=== PATIENT | female | born 1940 | race Caucasian/White ===

== ENCOUNTER 2016-09-29 21:03 | Emergency (ER) | payer OTHER ==
[~2016-09-29] VITALS: Ht 165.1 cm; Wt 69.3 kg
[~2016-09-29 21:03] MED LIST: CLARITIN10 M3 PO; DOXYCYCLINE HY100 M1 PO; PERCOCET 5/31 TABLET PO; TORADOL10 MG PO
[2016-09-29 22:17] LABS: HEMATOCRIT 40.8 % (36.0-46.0); MCH 28.8 PG (29.0-34.0); MCHC 32.8 G/DL (30.0-36.0); MCV 87.6 FL (83-99); MEAN PLAT.VOLUME 9.4 uM^3 (9.5-12.4); PLATELET COUNT 274 K/uL (156-360); RBC DIS.WIDTH-CV 12.8 % (11.8-14.6); RBC DIS.WIDTH-SD 40.2 % (39-53); RED BLOOD COUNT 4.66 M/uL (3.80-5.20); WHITE BLOOD COUNT 12.5 K/uL (4.1-10.2)
[2016-09-29 22:28] LABS: CHLORIDE 105 mEq/L (99-109); POTASSIUM 3.6 mEq/L (3.7-5.4); SODIUM 142 mEq/L (136-147)
[2016-09-29 22:31] LABS: GLUCOSE 115 mg/dL (70-99)
[2016-09-29 22:32] LABS: ANION GAP 11 MEQ/L (2-14)
[2016-09-29 22:33] LABS: TOTAL BILIRUBIN 0.5 mg/dL (0.0-1.0)
[2016-09-29 22:34] LABS: ALKALINE PHOSPHATASE 89 IU/L (3-129); GFR ESTIMATE (CALCULATED) > 59 mL/min/
[2016-09-29 22:35] LABS: UREA NITROGEN (BUN) 21 mg/dL (9-23)
[2016-09-29 22:38] LABS: LIPASE 7 U/L (1.0-51.0)
[2016-09-29 23:26] LABS: PTT 27.8 (25-32)
[2016-09-29 23:47] LABS: ADD MIUA? YES; BILIRUBIN NEGATIVE; BLOOD LARGE; COLOR YELLOW ((YELLOW)); GLUCOSE (STRIP) NEGATIVE; KETONES TRACE; LEUKOCYTES NEGATIVE; NITRITE NEGATIVE; PH, URINE 5.5 (5-8); PROTEIN (STRIP) TRACE; UROBILINOGEN 0.2 MG/DL (0.2-1.0)
[2016-09-30 00:02] LABS: TROP-I INTERPRETATION NEGATIVE; TROPONIN-I < 0.01 ng/mL (0.0-0.30)
[2016-09-30] MEDS ORDERED: ZOFRAN8 MG PO (00:08)
[2016-09-30] MEDS ORDERED: NORCO 5/3251 TABLET PO (00:08)
[2016-09-30] MEDS ORDERED: FLOMAX0.4 MG PO (00:08)
[2016-09-30 00:31] LABS: RED BLOOD CELLS 15-20 /HPF (0-5); WHITE BLOOD CELLS 0-5 /HPF (0-5)
[2016-09-30 00:32] LABS: BACTERIA 2+; CALCIUM OXALATE CRYSTALS 1+; CRYSTALS PRESENT; UCUL ADDED? NO
[2016-09-30 00:33] LABS: CASTS PRESENT /LPF; EPITHELIAL CELLS 2+; FINE GRANULAR CASTS 0-5 /LPF; MUCUS NONE SEEN
[2016-09-30] MEDS ORDERED: CIPRO250 MG PO (00:35)
[2016-09-30 00:58] VITALS: BP 155/64
[2016-09-30 01:02] LABS: SPECIFIC GRAVITY 1.048 (1.000-1.030)
== END 2016-09-30 00:59 | disposition home or self-care (01) ==
LOC: EME 21:03
PROVIDERS: Emergency Medicine
DX: N20.1 Calculus of ureter (principal); N39.0 Urinary tract infection, site not specified; Z87.442 Personal history of urinary calculi; F17.200 Nicotine dependence, unspecified, uncomplicated
CPT/HCPCS: 74177; 80053; 81003; 83690; 84484; 85027; 85610; 85730; 99281; 99285; J1885; J2270; J2405; J7030

== ENCOUNTER 2016-10-04 10:48 | Day surgery (SDC) | payer OTHER ==
[~2016-10-04] VITALS: Ht 157.5 cm; Wt 68.0 kg
[~2016-10-04 10:48] MED LIST changes: +CIPRO250 MG PO; +FLOMAX0.4 MG PO; +NORCO 5/3251 TABLET PO; +ZOFRAN8 MG PO
[2016-10-04] MEDS ORDERED: VENTOLIN HFA18 GM IH (10:59)
[2016-10-04 12:01] VITALS: BP 187/80
[2016-10-04 14:21] VITALS: BP 183/80
[2016-10-04 15:20] VITALS: BP 175/74
== END 2016-10-04 15:25 | disposition home or self-care (01) ==
LOC: SDC 10:48
PROVIDERS: Urology
DX: N13.2 Hydronephrosis with renal and ureteral calculous obstruction (principal); J44.9 Chronic obstructive pulmonary disease, unspecified; F17.200 Nicotine dependence, unspecified, uncomplicated; M19.90 Unspecified osteoarthritis, unspecified site
CPT/HCPCS: 82365 90; C1876; J0690; J3010; J7050

== ENCOUNTER 2016-10-16 22:08 | Inpatient (IN) | payer OTHER ==
[~2016-10-16] VITALS: Ht 162.6 cm; Wt 68.5 kg
[~2016-10-16 22:08] MED LIST changes: +VENTOLIN HFA18 GM IH
[2016-10-16 22:21] LABS: BASOPHIL COUNT 0.1 K/uL (0-0.1); EOSINOPHIL (%) 1.2 % (0-5); EOSINOPHIL COUNT 0.2 K/uL (0-0.3); HEMATOCRIT 42.2 % (36.0-46.0); IMMATURE GRANULOCYTE (%) 0.1 % (0.0-0.7); IMMATURE GRANULOCYTE COUNT 0.1 K/uL; LYMPHOCYTE COUNT 2.3 K/uL (1.0-2.8); MCH 29.4 PG (29.0-34.0); MCHC 33.2 G/DL (30.0-36.0); MCV 88.5 FL (83-99); MEAN PLAT.VOLUME 9.4 uM^3 (9.5-12.4); MONOCYTE (%) 7.2 % (3-12); MONOCYTE COUNT 0.9 K/uL (0-0.8); NEUTROPHIL (%) 72.6 % (45-76); NEUTROPHIL COUNT 8.8 K/uL (1.8-6.4); PLATELET COUNT 301 K/uL (156-360); RED BLOOD COUNT 4.77 M/uL (3.80-5.20); WHITE BLOOD COUNT 12.2 K/uL (4.1-10.2)
[2016-10-16 22:35] LABS: AMYLASE 39 IU/L (1-118); CHLORIDE 103 mEq/L (99-109); POTASSIUM 3.4 mEq/L (3.7-5.4); SODIUM 138 mEq/L (136-147)
[2016-10-16 22:37] LABS: GLUCOSE 125 mg/dL (70-99); PTT 27.3 (25-32)
[2016-10-16 22:38] LABS: ANION GAP 9 MEQ/L (2-14)
[2016-10-16 22:40] LABS: SERUM ETHYL ALCOHOL < 10 mg/dL
[2016-10-16 22:41] LABS: GFR ESTIMATE (CALCULATED) > 59 mL/min/
[2016-10-16 22:42] LABS: UREA NITROGEN (BUN) 18 mg/dL (9-23)
[2016-10-16 22:44] LABS: LIPASE 13 U/L (1.0-51.0)
[2016-10-16 22:50] LABS: TROP-I INTERPRETATION INDETERMINATE; TROPONIN-I 0.32 ng/mL (0.0-0.30)
[2016-10-16 23:55] VITALS: BP 134/72
[2016-10-17] VITALS (25 sets, daily range): BP systolic 97–146; BP diastolic 42–85
[2016-10-17 01:36] LABS: METH RESISTANT S AUREUS PCR NEGATIVE (NEGATIVE); PROBE CHECK PASS; SPECIMEN PROCESSING CONTROL PASS
[2016-10-17 06:06] LABS: ANION GAP 10 MEQ/L (2-14); CHLORIDE 110 MEQ/L (99-109); GFR ESTIMATE (CALCULATED) > 59 mL/min/; GLUCOSE 97 mg/dL (70-99); HDL CHOLESTEROL 36 MG/DL (Desirable>=50); LDL CHOLESTEROL 60 mg/dL (Desirable<100); NON-HDL CHOLESTEROL 82 mg/dL (Desirable<160); POTASSIUM 3.9 MEQ/L (3.7-5.4); SAMPLE HEMOLYSIS CHECK 0; SAMPLE ICTERIC CHECK 0; SAMPLE LIPEMIA CHECK 0; SODIUM 144 MEQ/L (136-147); TOTAL CHOLESTEROL 118 mg/dL (Desirable<200); TRIGLYCERIDES 110 MG/DL (Normal: <150); UREA NITROGEN (BUN) 12 mg/dL (9-23)
[2016-10-17 06:07] LABS: TOTAL CK 1799 IU/L (1-294)
[2016-10-17 06:08] LABS: CREATINE KINASE 1799 IU/L (1-294)
[2016-10-17 06:24] LABS: TROP-I INTERPRETATION POSITIVE
[2016-10-17 06:25] LABS: TROPONIN-I 59.27 ng/mL (0.0-0.30)
[2016-10-17 06:27] LABS: EOSINOPHIL (%) 1.1 % (0-5); EOSINOPHIL COUNT 0.1 K/uL (0-0.3); HEMATOCRIT 35.9 % (36.0-46.0); IMMATURE GRANULOCYTE (%) 0.3 % (0.0-0.7); LYMPHOCYTE COUNT 2.1 K/uL (1.0-2.8); MCV 90.7 FL (83-99); MEAN PLAT.VOLUME 9.9 uM^3 (9.5-12.4); MONOCYTE (%) 9.6 % (3-12); MONOCYTE COUNT 0.9 K/uL (0-0.8); NEUTROPHIL (%) 66.4 % (45-76); NEUTROPHIL COUNT 6.3 K/uL (1.8-6.4); PLATELET COUNT 252 K/uL (156-360); RBC DIS.WIDTH-CV 13.2 % (11.8-14.6); RBC DIS.WIDTH-SD 44.3 % (39-53); RED BLOOD COUNT 3.96 M/uL (3.80-5.20); WHITE BLOOD COUNT 9.5 K/uL (4.1-10.2)
[2016-10-17 06:56] LABS: CK-MB 241.5 ng/mL (0.0-4.9)
[2016-10-17 08:54] LABS: Estimated Average Glucose 120 mg/dL (70-123); HEMOGLOBIN A1c (GLYCOHEMOGLOB) 5.8 % HGB (Below 5.7)
[2016-10-17 19:47] LABS: TROP-I INTERPRETATION POSITIVE
[2016-10-17 19:51] LABS: TROPONIN-I 40.89 ng/mL (0.0-0.30)
[2016-10-17 22:24] LABS: TOTAL CK 1367 IU/L (1-294)
[2016-10-17 22:25] LABS: CREATINE KINASE 1367 IU/L (1-294)
[2016-10-17 22:41] LABS: CK-MB 158.8 ng/mL (0.0-4.9)
[2016-10-18] VITALS (10 sets, daily range): BP systolic 103–151; BP diastolic 44–71
[2016-10-18 05:42] LABS: HEMATOCRIT 35.5 % (36.0-46.0); MCH 28.1 PG (29.0-34.0); MCHC 31.3 G/DL (30.0-36.0); MCV 89.9 FL (83-99); MEAN PLAT.VOLUME 9.9 uM^3 (9.5-12.4); PLATELET COUNT 226 K/uL (156-360); RBC DIS.WIDTH-CV 13.3 % (11.8-14.6); RBC DIS.WIDTH-SD 43.9 % (39-53); RED BLOOD COUNT 3.95 M/uL (3.80-5.20); WHITE BLOOD COUNT 7.1 K/uL (4.1-10.2)
[2016-10-18 05:47] LABS: TROP-I INTERPRETATION POSITIVE
[2016-10-18 06:00] LABS: TROPONIN-I 31.81 ng/mL (0.0-0.30)
[2016-10-18 06:24] LABS: CREATINE KINASE 805 IU/L (1-294); TOTAL CK 805 IU/L (1-294)
[2016-10-18 06:25] LABS: ANION GAP 8 MEQ/L (2-14); CHLORIDE 110 MEQ/L (99-109); GFR ESTIMATE (CALCULATED) > 59 mL/min/; GLUCOSE 89 mg/dL (70-99); POTASSIUM 3.8 MEQ/L (3.7-5.4); SAMPLE HEMOLYSIS CHECK 0; SAMPLE ICTERIC CHECK 0; SAMPLE LIPEMIA CHECK 0; SODIUM 145 MEQ/L (136-147); UREA NITROGEN (BUN) 10 mg/dL (9-23)
[2016-10-18 07:26] LABS: CK-MB 66.4 ng/mL (0.0-4.9)
[2016-10-18] MEDS ORDERED: NITROSTAT0.4 MG SL (11:21)
[2016-10-18] MEDS ORDERED: LOPRESSOR25 MG PO (11:21)
[2016-10-18] MEDS ORDERED: ATORVASTATIN CA40 MG PO (11:21)
[2016-10-18] MEDS ORDERED: LISINOPRIL2.5 MG PO (11:21)
[2016-10-18] MEDS ORDERED: CLOPIDOGREL75 MG PO (11:21)
[2016-10-18] MEDS ORDERED: NICOTINE PATCH1 EAC2 TD (11:21)
[2016-10-18] MEDS ORDERED: LO-DOSE ASPIRIN81 M2 PO (16:28)
== END 2016-10-18 16:46 | disposition home or self-care (01) | DRG 247 ==
LOC: EME → EDBD 22:08 → EME 22:47 → CATH 22:47 → 4WEST 23:41 → 2SOUTH 23:41 → 4WEST 23:41
PROVIDERS: Emergency Medicine; Internal Medicine Cardiovascular Disease; Internal Medicine Interventional Cardiology
DX: I21.11 ST elevation (STEMI) myocardial infarction involving right coronary artery (principal); I25.10 Atherosclerotic heart disease of native coronary artery without angina pectoris; I34.0 Nonrheumatic mitral (valve) insufficiency; F17.210 Nicotine dependence, cigarettes, uncomplicated
CPT/HCPCS: 36600; 80048; 80061; 81003; 82150; 82550; 82550 91; 82553; 82803; 83036; 83690; 83735; 84484; 85025; 85027; 85347; 85610; 85730; 86850; 86900; 86901; 87040; 87070; 87086; 87205; 87641; 93005; 94799; 99281; 99285; C1725; C1769; C1874; C1887; G0480; J0153; J0461; J1644; J2250; J2270; J2405; J3010; J7030; J7040; J7050

== ENCOUNTER 2017-02-13 13:07 | Emergency (ER) | payer OTHER ==
[~2017-02-13] VITALS: Ht 165.1 cm; Wt 69.5 kg
[~2017-02-13 13:07] MED LIST changes: +ATORVASTATIN CA40 MG PO; +CLOPIDOGREL75 MG PO; +LISINOPRIL2.5 MG PO; +LO-DOSE ASPIRIN81 M2 PO; +LOPRESSOR25 MG PO; +NICOTINE PATCH1 EAC2 TD; +NITROSTAT0.4 MG SL
[2017-02-13 14:40] LABS: HEMATOCRIT 40.6 % (36.0-46.0); MCH 29.2 PG (29.0-34.0); MCHC 32.5 G/DL (30.0-36.0); MCV 89.8 FL (83-99); MEAN PLAT.VOLUME 9.6 uM^3 (9.5-12.4); PLATELET COUNT 285 K/uL (156-360); RBC DIS.WIDTH-CV 13.2 % (11.8-14.6); RBC DIS.WIDTH-SD 43.1 % (39-53); RED BLOOD COUNT 4.52 M/uL (3.80-5.20); WHITE BLOOD COUNT 6.8 K/uL (4.1-10.2)
[2017-02-13 14:57] LABS: CHLORIDE 108 mEq/L (99-109); POTASSIUM 4.5 mEq/L (3.7-5.4); SODIUM 142 mEq/L (136-147)
[2017-02-13 14:59] LABS: GLUCOSE 103 mg/dL (70-99)
[2017-02-13 15:00] LABS: ANION GAP 8 MEQ/L (2-14)
[2017-02-13 15:03] LABS: GFR ESTIMATE (CALCULATED) > 59 mL/min/
[2017-02-13 15:04] LABS: UREA NITROGEN (BUN) 19 mg/dL (9-23)
[2017-02-13 15:12] LABS: ADD MIUA? YES; BILIRUBIN NEGATIVE; BLOOD MODERATE; COLOR YELLOW ((YELLOW)); GLUCOSE (STRIP) NEGATIVE; KETONES NEGATIVE; LEUKOCYTES SMALL; NITRITE NEGATIVE; PROTEIN (STRIP) NEGATIVE; SPECIFIC GRAVITY 1.018 (1.000-1.030); UROBILINOGEN 0.2 MG/DL (0.2-1.0)
[2017-02-13 16:03] LABS: BACTERIA RARE /HPF; EPITHELIAL CELLS RARE /HPF; HYALINE CASTS 0-5 /LPF; MUCUS TRACE /LPF; RED BLOOD CELLS 0-5 /HPF (0-5); UCUL ADDED? NO; WHITE BLOOD CELLS 0-5 /HPF (0-5)
[2017-02-13] MEDS ORDERED: TORADOL10 MG PO (18:02)
[2017-02-13] MEDS ORDERED: FLOMAX0.4 MG PO (18:02)
[2017-02-13] MEDS ORDERED: ZOFRAN4 MG PO (18:02)
[2017-02-13] MEDS ORDERED: PERCOCET 5/31 TABLET PO (18:02)
[2017-02-13] MEDS ORDERED: PRINIVIL10 MG PO (18:07)
[2017-02-13 19:25] VITALS: BP 142/72
== END 2017-02-13 19:27 | disposition home or self-care (01) ==
LOC: EME 13:07
DX: N20.0 Calculus of kidney (principal); J44.9 Chronic obstructive pulmonary disease, unspecified; I25.2 Old myocardial infarction; Z87.442 Personal history of urinary calculi; Z87.891 Personal history of nicotine dependence
CPT/HCPCS: 74176; 80048; 81003; 85027; 99281; 99285; J1885; J7030

== ENCOUNTER 2017-02-18 17:55 | Emergency (ER) | payer OTHER ==
[~2017-02-18] VITALS: Ht 165.1 cm; Wt 73.1 kg
[~2017-02-18 17:55] MED LIST changes: +PRINIVIL10 MG PO; +ZOFRAN4 MG PO
[2017-02-18 18:17] LABS: MCH 29.2 PG (29.0-34.0); MCHC 32.7 G/DL (30.0-36.0); MCV 89.2 FL (83-99); MEAN PLAT.VOLUME 9.2 uM^3 (9.5-12.4); PLATELET COUNT 250 K/uL (156-360); RBC DIS.WIDTH-CV 13.2 % (11.8-14.6); RBC DIS.WIDTH-SD 43.3 % (39-53); RED BLOOD COUNT 4.15 M/uL (3.80-5.20); WHITE BLOOD COUNT 7.6 K/uL (4.1-10.2)
[2017-02-18 18:25] LABS: CHLORIDE 110 mEq/L (99-109); POTASSIUM 3.9 mEq/L (3.7-5.4); SODIUM 144 mEq/L (136-147)
[2017-02-18 18:26] LABS: GLUCOSE 124 mg/dL (70-99)
[2017-02-18 18:28] LABS: ANION GAP 9 MEQ/L (2-14)
[2017-02-18 18:30] LABS: GFR ESTIMATE (CALCULATED) > 59 mL/min/
[2017-02-18 18:31] LABS: UREA NITROGEN (BUN) 23 mg/dL (9-23)
[2017-02-18 20:52] LABS: ADD MIUA? YES; BILIRUBIN NEGATIVE; BLOOD MODERATE; COLOR YELLOW ((YELLOW)); GLUCOSE (STRIP) NEGATIVE; KETONES NEGATIVE; LEUKOCYTES MODERATE; NITRITE NEGATIVE; PROTEIN (STRIP) 30; SPECIFIC GRAVITY 1.019 (1.000-1.030); UROBILINOGEN 0.2 MG/DL (0.2-1.0)
[2017-02-18 20:56] LABS: BACTERIA RARE /HPF; EPITHELIAL CELLS RARE /HPF; HYALINE CASTS 0-5 /LPF; MUCUS TRACE /LPF; RED BLOOD CELLS TNTC /HPF (0-5); UCUL ADDED? NO
[2017-02-18] MEDS ORDERED: OXAYDO5 MG PO (21:07)
[2017-02-18] MEDS ORDERED: FLOMAX0.4 MG PO (21:07)
[2017-02-18 21:38] VITALS: BP 154/51
[2017-02-19] MEDS ORDERED: ZOFRAN ODT4 MG PO (16:47)
== END 2017-02-18 21:40 | disposition home or self-care (01) ==
LOC: EME → EDBD 17:55 → EME 17:55
DX: N13.2 Hydronephrosis with renal and ureteral calculous obstruction (principal); K57.30 Diverticulosis of large intestine without perforation or abscess without bleeding; Z87.442 Personal history of urinary calculi; Z87.891 Personal history of nicotine dependence
CPT/HCPCS: 74176; 80048; 81003; 85027; 99281; 99284; J2270; J3010; J7030

== ENCOUNTER 2017-02-19 10:47 | Emergency (ER) | payer OTHER ==
[~2017-02-19] VITALS: Ht 165.1 cm; Wt 65.9 kg
[~2017-02-19 10:47] MED LIST changes: +OXAYDO5 MG PO
[2017-02-19 12:22] LABS: EOSINOPHIL (%) 0.1 % (0-5); HEMATOCRIT 36.6 % (36.0-46.0); IMMATURE GRANULOCYTE (%) 0.5 % (0.0-0.7); IMMATURE GRANULOCYTE COUNT 0.1 K/uL; INSTRUMENT ABS NEUTROPHIL CT 12.3 K/uL; LYMPHOCYTE COUNT 1.1 K/uL (1.0-2.8); MCH 28.9 PG (29.0-34.0); MCV 90.4 FL (83-99); MEAN PLAT.VOLUME 9.5 uM^3 (9.5-12.4); MONOCYTE (%) 9.5 % (3-12); MONOCYTE COUNT 1.4 K/uL (0-0.8); NEUTROPHIL (%) 82.2 % (45-76); NEUTROPHIL COUNT 12.3 K/uL (1.8-6.4); PLATELET COUNT 241 K/uL (156-360); RBC DIS.WIDTH-CV 13.3 % (11.8-14.6); RED BLOOD COUNT 4.05 M/uL (3.80-5.20)
[2017-02-19 13:20] LABS: TROP-I INTERPRETATION NEGATIVE; TROPONIN-I 0.01 ng/mL (0.0-0.30)
[2017-02-19 13:21] LABS: ANION GAP 8 MEQ/L (2-14); CHLORIDE 106 MEQ/L (99-109); GFR ESTIMATE (CALCULATED) > 59 mL/min/; GLUCOSE 106 mg/dL (70-99); POTASSIUM 3.6 MEQ/L (3.7-5.4); SAMPLE HEMOLYSIS CHECK 0; SAMPLE ICTERIC CHECK 0; SAMPLE LIPEMIA CHECK 0; SODIUM 140 MEQ/L (136-147); UREA NITROGEN (BUN) 22 mg/dL (9-23)
[2017-02-19 16:04] LABS: ADD MIUA? YES; BILIRUBIN NEGATIVE; BLOOD LARGE; COLOR YELLOW ((YELLOW)); GLUCOSE (STRIP) NEGATIVE; KETONES NEGATIVE; LEUKOCYTES TRACE; NITRITE NEGATIVE; PROTEIN (STRIP) 30; SPECIFIC GRAVITY 1.024 (1.000-1.030); UROBILINOGEN 0.2 MG/DL (0.2-1.0)
[2017-02-19 16:17] LABS: BACTERIA NONE SEEN /HPF; EPITHELIAL CELLS RARE /HPF; MUCUS TRACE /LPF; RED BLOOD CELLS TNTC /HPF (0-5); UCUL ADDED? NO; WHITE BLOOD CELLS 0-5 /HPF (0-5)
[2017-02-19] MEDS ORDERED: ZOFRAN ODT4 MG PO (16:47)
[2017-02-19 17:16] VITALS: BP 135/52
== END 2017-02-19 17:17 | disposition home or self-care (01) ==
LOC: EME 10:47
PROVIDERS: Emergency Medicine
DX: N20.0 Calculus of kidney (principal); J44.9 Chronic obstructive pulmonary disease, unspecified; R91.1 Solitary pulmonary nodule; I25.2 Old myocardial infarction; Z87.891 Personal history of nicotine dependence
CPT/HCPCS: 71010; 71250; 74000; 80048; 81003; 84484; 85025; 93005; 94640; 99281; 99285; J2270; J2405; J7030

== ENCOUNTER → 2017-03-30 | Outpatient (CLI) | payer OTHER ==
[~2017-03-30] VITALS: Ht 165.1 cm; Wt 67.9 kg
[~2017-03-30] MED LIST changes: +ZOFRAN ODT4 MG PO
== END | disposition home or self-care (01) ==
LOC: OPR 09:00 → EDSTATUS 09:00 → OPR 09:02
DX: C7A.8 Other malignant neuroendocrine tumors (principal); R59.0 Localized enlarged lymph nodes; K76.9 Liver disease, unspecified
CPT/HCPCS: 77012; 85999; 88305; 88341 TC; 88342 TC; J3010

== ENCOUNTER 2017-05-22 10:57 | Inpatient (IN) | payer OTHER ==
[~2017-05-22] VITALS: Ht 165.1 cm; Wt 65.9 kg
[2017-05-22 11:30] LABS: HEMATOCRIT 38.5 % (36.0-46.0); MCH 29.2 PG (29.0-34.0); MCHC 32.7 G/DL (30.0-36.0); MCV 89.3 FL (83-99); MEAN PLAT.VOLUME 9.9 uM^3 (9.5-12.4); PLATELET COUNT 304 K/uL (156-360); RBC DIS.WIDTH-SD 42.7 % (39-53); RED BLOOD COUNT 4.31 M/uL (3.80-5.20); WHITE BLOOD COUNT 11.6 K/uL (4.1-10.2)
[2017-05-22 11:37] LABS: CHLORIDE 103 mEq/L (99-109); POTASSIUM 4.7 mEq/L (3.7-5.4); SODIUM 141 mEq/L (136-147)
[2017-05-22 11:39] LABS: GLUCOSE 109 mg/dL (70-99)
[2017-05-22 11:40] LABS: ANION GAP 15 MEQ/L (2-14)
[2017-05-22 11:42] LABS: GFR ESTIMATE (CALCULATED) 36 mL/min/
[2017-05-22 11:43] LABS: UREA NITROGEN (BUN) 43 mg/dL (9-23)
[2017-05-22 11:49] LABS: TROP-I INTERPRETATION NEGATIVE; TROPONIN-I < 0.01 ng/mL (0.0-0.30)
[2017-05-22] MEDS ORDERED: PLAVIX75 MG PO (13:49)
[2017-05-22] MEDS ORDERED: LO-DOSE ASPIRIN81 M2 PO (13:49)
[2017-05-22] MEDS ORDERED: COLACE100 MG PO (13:50)
[2017-05-22 15:32] VITALS: BP 151/61
[2017-05-22 18:52] LABS: TROP-I INTERPRETATION NEGATIVE; TROPONIN-I < 0.01 ng/mL (0.0-0.30)
[2017-05-22 19:59] VITALS: BP 117/56
[2017-05-23] VITALS (7 sets, daily range): BP systolic 88–120; BP diastolic 47–70
[2017-05-23 01:35] LABS: TROP-I INTERPRETATION NEGATIVE; TROPONIN-I 0.03 ng/mL (0.0-0.30)
[2017-05-23 05:36] LABS: ANION GAP 9 MEQ/L (2-14); CHLORIDE 105 MEQ/L (99-109); GFR ESTIMATE (CALCULATED) 46 mL/min/; GLUCOSE 100 mg/dL (70-99); POTASSIUM 4.5 MEQ/L (3.7-5.4); SAMPLE HEMOLYSIS CHECK 0; SAMPLE ICTERIC CHECK 0; SAMPLE LIPEMIA CHECK 0; SODIUM 140 MEQ/L (136-147); UREA NITROGEN (BUN) 38 mg/dL (9-23)
[2017-05-24 03:55] VITALS: BP 97/48
[2017-05-24 05:46] LABS: BASOPHIL COUNT 0.1 K/uL (0-0.1); EOSINOPHIL (%) 14.1 % (0-5); EOSINOPHIL COUNT 1.3 K/uL (0-0.3); HEMATOCRIT 32.7 % (36.0-46.0); IMMATURE GRANULOCYTE (%) 0.5 % (0.0-0.7); INSTRUMENT ABS NEUTROPHIL CT 4.8 K/uL; LYMPHOCYTE COUNT 1.7 K/uL (1.0-2.8); MCH 28.5 PG (29.0-34.0); MCHC 32.1 G/DL (30.0-36.0); MCV 88.6 FL (83-99); MEAN PLAT.VOLUME 10.4 uM^3 (9.5-12.4); MONOCYTE (%) 11.3 % (3-12); NEUTROPHIL (%) 54.3 % (45-76); NEUTROPHIL COUNT 4.8 K/uL (1.8-6.4); PLATELET COUNT 222 K/uL (156-360); RBC DIS.WIDTH-CV 13.1 % (11.8-14.6); RBC DIS.WIDTH-SD 42.4 % (39-53); RED BLOOD COUNT 3.69 M/uL (3.80-5.20); WHITE BLOOD COUNT 8.9 K/uL (4.1-10.2)
[2017-05-24 06:04] LABS: ANION GAP 8 MEQ/L (2-14); CHLORIDE 108 MEQ/L (99-109); GFR ESTIMATE (CALCULATED) > 59 mL/min/; GLUCOSE 96 mg/dL (70-99); POTASSIUM 4.4 MEQ/L (3.7-5.4); SAMPLE HEMOLYSIS CHECK 0; SAMPLE ICTERIC CHECK 0; SAMPLE LIPEMIA CHECK 0; SODIUM 142 MEQ/L (136-147); UREA NITROGEN (BUN) 26 mg/dL (9-23)
[2017-05-24 07:22] VITALS: BP 131/58
[2017-05-24 12:17] VITALS: BP 135/74
[2017-05-24 14:26] VITALS: BP 111/55
[2017-05-24 20:54] VITALS: BP 149/63
[2017-05-25 03:35] VITALS: BP 106/51
[2017-05-25 06:28] LABS: HEMATOCRIT 31.6 % (36.0-46.0); MCH 29.7 PG (29.0-34.0); MCHC 33.2 G/DL (30.0-36.0); MCV 89.5 FL (83-99); MEAN PLAT.VOLUME 10.6 uM^3 (9.5-12.4); PLATELET COUNT 210 K/uL (156-360); RBC DIS.WIDTH-CV 13.3 % (11.8-14.6); RBC DIS.WIDTH-SD 43.7 % (39-53); RED BLOOD COUNT 3.53 M/uL (3.80-5.20); WHITE BLOOD COUNT 9.8 K/uL (4.1-10.2)
[2017-05-25 07:30] VITALS: BP 143/61
[2017-05-25] MEDS ORDERED: CEFTIN250 MG PO (10:58)
[2017-05-25] MEDS ORDERED: FLAGYL500 MG PO (10:58)
[2017-05-25] MEDS ORDERED: BENTYL10 MG PO (11:01)
[2017-05-25] MEDS ORDERED: PERCOCET 5/31 TABLET PO (11:01)
[2017-05-25 12:38] VITALS: BP 118/69
== END 2017-05-25 12:52 | disposition home or self-care (01) | DRG 392 ==
LOC: EME 10:57 → EDOF 13:40 → 5WEST 13:40 → EDOF 13:40 → ENRESERV 13:48 → 5WEST 15:18 → ENRESERV 05-23 16:50 → CANRESERV 05-24 01:43 → ENRESERV 05-24 01:43 → 5WEST 05-25 12:52
PROVIDERS: Internal Medicine; Internal Medicine Gastroenterology; Physician Assistant
DX: K57.32 Diverticulitis of large intestine without perforation or abscess without bleeding (principal); R07.89 Other chest pain; C7B.09 Secondary carcinoid tumors of other sites; C7B.01 Secondary carcinoid tumors of distant lymph nodes; C7B.02 Secondary carcinoid tumors of liver; N17.9 Acute kidney failure, unspecified; E86.0 Dehydration; I95.9 Hypotension, unspecified; N20.0 Calculus of kidney; I49.1 Atrial premature depolarization; R63.4 Abnormal weight loss; J44.9 Chronic obstructive pulmonary disease, unspecified; D64.9 Anemia, unspecified; E78.5 Hyperlipidemia, unspecified; I25.10 Atherosclerotic heart disease of native coronary artery without angina pectoris; I25.2 Old myocardial infarction; Z79.02 Long term (current) use of antithrombotics/antiplatelets; Z79.82 Long term (current) use of aspirin; Z82.49 Family history of ischemic heart disease and other diseases of the circulatory system; Z83.3 Family history of diabetes mellitus; Z86.718 Personal history of other venous thrombosis and embolism; Z87.891 Personal history of nicotine dependence; Z95.5 Presence of coronary angioplasty implant and graft
CPT/HCPCS: 71020; 74176; 80048; 84484; 85025; 85027; 93005; 99281; 99285; G0378; J0696; J1170; J1200; J1644; J2405; J7030; J7050; S0030

== ENCOUNTER 2017-11-20 13:27 | Inpatient (IN) | payer OTHER ==
[~2017-11-20] VITALS: Ht 165.1 cm; Wt 51.7 kg
[~2017-11-20 13:27] MED LIST changes: +AMOXICILLIN500 MG PO; +BENTYL10 MG PO; +CEFTIN250 MG PO; +CENTRUM ADULTS1 EACH PO; +COLACE100 MG PO; +FLAGYL500 MG PO; +PLAVIX75 MG PO; +ZANTAC150 MG PO
[2017-11-20 14:47] LABS: HEMATOCRIT 41.1 % (36.0-46.0); HEMOGLOBIN 13.9 G/DL (11.9-15.5); MCH 31.3 PG (29.0-34.0); MCHC 33.8 G/DL (30.0-36.0); PLATELET COUNT 233 K/uL (156-360); RBC DIS.WIDTH-CV 13.5 % (11.8-14.6); RBC DIS.WIDTH-SD 45.9 % (39-53); RED BLOOD COUNT 4.44 M/uL (3.80-5.20)
[2017-11-20 14:49] LABS: MCV 92.6 FL (83-99)
[2017-11-20 14:51] LABS: APPEARANCE CLOUDY ((CLEAR)); BILIRUBIN NEGATIVE; BLOOD NEGATIVE; COLOR YELLOW ((YELLOW)); GLUCOSE (STRIP) NEGATIVE; KETONES NEGATIVE; LEUKOCYTES SMALL; NITRITE NEGATIVE; PROTEIN (STRIP) NEGATIVE; SPECIFIC GRAVITY 1.011 (1.000-1.030); UROBILINOGEN 0.2 MG/DL (0.2-1.0)
[2017-11-20 14:53] LABS: ALBUMIN 3.7 g/dL (3.2-4.8); CHLORIDE 97 mEq/L (99-109); POTASSIUM 3.6 mEq/L (3.7-5.4); SODIUM 138 mEq/L (136-147)
[2017-11-20 14:56] LABS: GLUCOSE 106 mg/dL (70-99); TOTAL PROTEIN 6.3 g/dL (6.4-8.3)
[2017-11-20 14:58] LABS: TOTAL BILIRUBIN 1.3 mg/dL (0.0-1.0)
[2017-11-20 14:59] LABS: ALKALINE PHOSPHATASE 105 IU/L (3-129); CREATININE 0.7 mg/dL (0.6-1.3); GFR ESTIMATE (CALCULATED) > 59 mL/min/
[2017-11-20 15:00] LABS: UREA NITROGEN (BUN) 19 mg/dL (9-23)
[2017-11-20 15:01] LABS: AST (GOT) 41 IU/L (2-34)
[2017-11-20 15:02] LABS: ALT (GPT) 31 IU/L (3-49)
[2017-11-20 15:58] LABS: MAGNESIUM 1.8 mg/dL (1.3-2.7)
[2017-11-20 16:05] LABS: LIPASE 3 U/L (1.0-51.0)
[2017-11-20 16:15] LABS: AMORPHOUS URATES CRYSTALS 3+; BACTERIA NONE SEEN /HPF; EPITHELIAL CELLS RARE /HPF; MUCUS NONE SEEN /LPF; RED BLOOD CELLS NONE SEEN /HPF (0-5); UCUL ADDED? NO; WHITE BLOOD CELLS RARE /HPF (0-5)
[2017-11-20 18:34] LABS: TROP-I INTERPRETATION NEGATIVE; TROPONIN-I < 0.01 ng/mL (0.0-0.30)
[2017-11-20 18:44] LABS: BASOPHIL (%) 0.1 % (0-1); EOSINOPHIL (%) 3.8 % (0-5); EOSINOPHIL COUNT 0.5 K/uL (0-0.3); HEMATOCRIT 39.6 % (36.0-46.0); HEMOGLOBIN 13.4 G/DL (11.9-15.5); IMMATURE GRANULOCYTE (%) 0.4 % (0.0-0.7); LYMPHOCYTE (%) 20.2 % (15-42); LYMPHOCYTE COUNT 2.9 K/uL (1.0-2.8); MCH 31.5 PG (29.0-34.0); MCHC 33.8 G/DL (30.0-36.0); MCV 93.2 FL (83-99); MONOCYTE COUNT 1.4 K/uL (0-0.8); NEUTROPHIL (%) 65.5 % (45-76); NEUTROPHIL COUNT 9.4 K/uL (1.8-6.4); PLATELET COUNT 202 K/uL (156-360); RBC DIS.WIDTH-CV 13.6 % (11.8-14.6); RBC DIS.WIDTH-SD 46.7 % (39-53); RED BLOOD COUNT 4.25 M/uL (3.80-5.20); WHITE BLOOD COUNT 14.3 K/uL (4.1-10.2)
[2017-11-20 18:53] LABS: PTT 24.9 SEC (25-37)
[2017-11-20 18:55] LABS: AMYLASE 22 IU/L (1-118); CHLORIDE 99 mEq/L (99-109); POTASSIUM 2.9 mEq/L (3.7-5.4); SODIUM 138 mEq/L (136-147)
[2017-11-20 18:57] LABS: GLUCOSE 99 mg/dL (70-99)
[2017-11-20 19:00] LABS: SERUM ETHYL ALCOHOL < 10 mg/dL
[2017-11-20 19:01] LABS: CREATININE 0.7 mg/dL (0.6-1.3); GFR ESTIMATE (CALCULATED) > 59 mL/min/
[2017-11-20 19:02] LABS: UREA NITROGEN (BUN) 22 mg/dL (9-23)
[2017-11-20 19:09] LABS: TROP-I INTERPRETATION NEGATIVE; TROPONIN-I < 0.01 ng/mL (0.0-0.30)
[2017-11-20] MEDS ORDERED: HYDROMORPHONE HC2 MG PO (21:29)
[2017-11-20] MEDS ORDERED: PANTOPRAZOLE SO20 MG PO (21:30)
[2017-11-20] MEDS ORDERED: OXYCODONE HCL5 MG PO (21:30)
[2017-11-20] MEDS ORDERED: PURELAX510 GM PO (21:33)
[2017-11-20] MEDS ORDERED: NITROGLYCERIN0.4 MG SL (21:34)
[2017-11-20 23:17] VITALS: BP 161/104
[2017-11-20 23:27] VITALS: BP 161/64
[2017-11-20 23:57] VITALS: BP 154/70
[2017-11-21] VITALS (25 sets, daily range): BP systolic 91–177; BP diastolic 35–104
[2017-11-21 06:50] LABS: HEMATOCRIT 41.8 % (36.0-46.0); HEMOGLOBIN 13.8 G/DL (11.9-15.5); MCH 31.2 PG (29.0-34.0); MCV 94.4 FL (83-99); PLATELET COUNT 226 K/uL (156-360); RBC DIS.WIDTH-CV 13.8 % (11.8-14.6); RBC DIS.WIDTH-SD 48.1 % (39-53); RED BLOOD COUNT 4.43 M/uL (3.80-5.20); WHITE BLOOD COUNT 13.8 K/uL (4.1-10.2)
[2017-11-21 07:18] LABS: COCAINE NEGATIVE (150 ng/mL); PHENCYCLIDINE NEGATIVE (25 ng/mL); THC CANNABINOIDS NEGATIVE (50 ng/mL)
[2017-11-21 07:19] LABS: AMPHETAMINE NEGATIVE (500 ng/mL); BARBITURATES NEGATIVE (200 ng/mL); BENZODIAZEPINES NEGATIVE (150 ng/mL); BUPRENORPHINE NEGATIVE (10 ng/mL); METHADONE NEGATIVE (200 ng/mL); METHAMPHETAMINE NEGATIVE (500 ng/mL); OPIATES (MORPHINE) PRESUMPTIVE POSITIVE (100 ng/mL); OXYCODONE NEGATIVE (100 ng/mL); PROPOXYPHENE NEGATIVE (300 ng/mL); TRICYCLIC ANTIDEPRESSANTS NEGATIVE (300 ng/mL)
[2017-11-21 07:28] LABS: CHLORIDE 102 MEQ/L (99-109); CREATININE 0.7 MG/DL (0.6-1.3); GFR ESTIMATE (CALCULATED) > 59 mL/min/; GLUCOSE 112 mg/dL (70-99); HDL CHOLESTEROL 58 MG/DL (Desirable>=50); LDL CHOLESTEROL 59 mg/dL (Desirable<100); NON-HDL CHOLESTEROL 80 mg/dL (Desirable<160); SODIUM 140 MEQ/L (136-147); TOTAL CHOLESTEROL 138 mg/dL (Desirable<200); TRIGLYCERIDES 103 MG/DL (Normal: <150); UREA NITROGEN (BUN) 22 mg/dL (9-23)
[2017-11-21 07:34] LABS: POTASSIUM 3.9 MEQ/L (3.7-5.4)
[2017-11-21 10:38] LABS: HEMOGLOBIN A1c (GLYCOHEMOGLOB) 5.7 % (Below 5.7)
[2017-11-22] VITALS (9 sets, daily range): BP systolic 105–168; BP diastolic 52–72
[2017-11-23] VITALS (9 sets, daily range): BP systolic 109–143; BP diastolic 54–74
[2017-11-23 05:14] LABS: CHLORIDE 105 mEq/L (99-109); POTASSIUM 4.3 mEq/L (3.7-5.4); SODIUM 139 mEq/L (136-147)
[2017-11-23 05:16] LABS: GLUCOSE 133 mg/dL (70-99)
[2017-11-23 05:20] LABS: CREATININE 0.6 mg/dL (0.6-1.3); GFR ESTIMATE (CALCULATED) > 59 mL/min/
[2017-11-23 05:21] LABS: UREA NITROGEN (BUN) 13 mg/dL (9-23)
[2017-11-24 06:55] LABS: BASOPHIL (%) 0.1 % (0-1); EOSINOPHIL (%) 0 % (0-5); HEMATOCRIT 37.5 % (36.0-46.0); HEMOGLOBIN 12.3 G/DL (11.9-15.5); IMMATURE GRANULOCYTE (%) 1.3 % (0.0-0.7); MCH 30.4 PG (29.0-34.0); MCHC 32.8 G/DL (30.0-36.0); MCV 92.8 FL (83-99); MONOCYTE (%) 3.6 % (3-12); MONOCYTE COUNT 0.5 K/uL (0-0.8); NEUTROPHIL COUNT 10.9 K/uL (1.8-6.4); PLATELET COUNT 194 K/uL (156-360); RBC DIS.WIDTH-CV 13.3 % (11.8-14.6); RBC DIS.WIDTH-SD 45.4 % (39-53); RED BLOOD COUNT 4.04 M/uL (3.80-5.20); WHITE BLOOD COUNT 12.6 K/uL (4.1-10.2)
[2017-11-24 07:13] LABS: CHLORIDE 98 MEQ/L (99-109); CREATININE 0.6 MG/DL (0.6-1.3); GFR ESTIMATE (CALCULATED) > 59 mL/min/; GLUCOSE 127 mg/dL (70-99); SODIUM 137 MEQ/L (136-147); UREA NITROGEN (BUN) 19 mg/dL (9-23)
[2017-11-24 07:48] VITALS: BP 116/58
[2017-11-24 12:00] VITALS: BP 159/72
[2017-11-24 16:00] VITALS: BP 143/71
[2017-11-24] MEDS ORDERED: CIPROFLOXACIN500 M1 PO (16:20)
[2017-11-24] MEDS ORDERED: METRONIDAZOLE500 MG PO (16:21)
[2017-11-24] MEDS ORDERED: POLYETHYLENE GL17 GM PO (16:25)
[2017-11-24] MEDS ORDERED: DOCUSATE SODIU100 MG PO (16:25)
[2017-11-24] MEDS ORDERED: LEVETIRACETAM500 MG PO (16:25)
[2017-11-24] MEDS ORDERED: OXYCODONE HCL5 MG PO (16:26)
[2017-11-24] MEDS ORDERED: MEDROL DOSEPAK4 MG PO (16:26)
== END 2017-11-24 18:23 | disposition home health service (06) | DRG 844 ==
LOC: EME 13:27 → EDOF 22:02 → ENRESERV 22:02 → 4WEST 22:02 → ENRESERV 22:10 → 4WEST 23:08 → ENRESERV 11-22 15:42 → 4WEST 11-22 18:38 → ENRESERV 11-23 04:39 → 5SOUTH 11-23 14:41
PROVIDERS: Internal Medicine; Internal Medicine Critical Care Medicine; Physician Assistant; Surgery
PROC: 3E03317 Introduction of Other Thrombolytic into Peripheral Vein, Percutaneous Approach (ICD-10-PCS; principal; 2017-11-20)
PROC: D00 Radiation Therapy, Central and Peripheral Nervous System, Beam Radiation (ICD-10-PCS; 2017-11-22)
DX: C7B.8 Other secondary neuroendocrine tumors (principal); C7A.1 Malignant poorly differentiated neuroendocrine tumors; K57.32 Diverticulitis of large intestine without perforation or abscess without bleeding; R41.4 Neurologic neglect syndrome; R47.01 Aphasia; R47.1 Dysarthria and anarthria; G89.3 Neoplasm related pain (acute) (chronic); E87.6 Hypokalemia; K52.9 Noninfective gastroenteritis and colitis, unspecified; J43.9 Emphysema, unspecified; I25.2 Old myocardial infarction; F32.9 Major depressive disorder, single episode, unspecified; I10 Essential (primary) hypertension; I25.10 Atherosclerotic heart disease of native coronary artery without angina pectoris; Z85.828 Personal history of other malignant neoplasm of skin; Z86.718 Personal history of other venous thrombosis and embolism; Z86.711 Personal history of pulmonary embolism; Z87.442 Personal history of urinary calculi; Z87.891 Personal history of nicotine dependence; Z95.5 Presence of coronary angioplasty implant and graft; Z92.21 Personal history of antineoplastic chemotherapy; Z79.02 Long term (current) use of antithrombotics/antiplatelets; Z79.82 Long term (current) use of aspirin; Z79.891 Long term (current) use of opiate analgesic; Z74.01 Bed confinement status; Z82.49 Family history of ischemic heart disease and other diseases of the circulatory system; Z83.3 Family history of diabetes mellitus
CPT/HCPCS: 70450; 70496; 70498; 70553; 71045; 74176; 77290; 77307; 77331; 77334; 77412; 77417; 80048; 80048 91; 80053; 80061; 81003; 82150; 82948; 83036; 83690; 83735; 84484; 84999; 85025; 85027; 85610; 85730; 86850; 86900; 86901; 87641; 92523 GN; 93005; 96361; 96374; 96375; 97530 GP; 99281; 99285; G0480; J1626; J1885; J2405; J2543; J2997; J3010; J3480; J7030; J7040; J7050; J8540; S0028